=== PATIENT | female | born 1960 | race Caucasian/White ===

== ENCOUNTER 2018-07-12 16:01 | Emergency (ER) | payer MEDICARE, MEDICAID, SELFPAY ==
[2018-07-12 16:08] VITALS: BP 188/110; PULSE 126; RESP 20; TEMP 37; O2SAT 96
--- NOTE | 2018-07-12 16:25 | W.ED.GENAD ---
Discharge Plan Disposition Patient Disposition: HOME Condition: Good Discharge Details Chief Complaint: EarProblem Clinical Impression: Muscle strain Primary Care Provider: Alyssa Pearson ED Provider: Jason Steinberg Home Meds and New Rx's Prescriptions: New acetaminophen [Mapap Extra Strength] 500 MG tablet 1,000 mg PO Q6H 5 Days Qty: 20 RF: 0 ibuprofen [Motrin IB] 200 MG tablet 600 mg PO Q6H 5 Days Qty: 30 RF: 0 No Action Metoprolol Succinate 25 MG TAB.ER.24H 25 mg PO DAILY Qty: 90 RF: 3 levothyroxine 150 MCG tablet 150 mcg PO DAILY Qty: 90 RF: 3 escitalopram oxalate [Lexapro] 10 MG tablet 10 mg PO DAILY Qty: 90 RF: 3 Discharge Instructions Instructions: Muscle Strain (ED) Additional Instructions: Please use ice/heat, Tylenol and Motrin for your pain. If you notice any hearing changes, fever, please return immediately. If you notice any worsening of your symptoms, or any new symptoms such as vomiting, diarrhea, fever, chills, shortness of breath, chest pain, numbness, weakness, or fainting , please return immediately to the emergency department for reevaluation. Please follow up with your primary care provider as soon as possible for reassessment and reevaluation. As always, it was a pleasure participating in your medical care today. Medical Decision Making MDM Narrative Medical decision making narrative: This is a 58-year-old female who presents for right-sided ear pain. She has a history of ear infections in the past. Physical exam demonstrates no signs of otitis media or otitis externa at this time. She has had no recent swimming episodes or bathing episodes in a bathtub for submersion. There is no evidence of erythema, effusion, or purulent drainage from the ear. No signs of rupture. Physical exam does demonstrate minimal tenderness by the insertion point of the sternocleidomastoid on the right. I feel that her signs and symptoms are inconsistent with infection especially with no systemic symptoms, and are more consistent with a mild musculoskeletal sprain of the proximal aspect of the SCM. She states that her chiropractic techniques have been helping, and I have encouraged her to continue these. We will recommend Tylenol, Motrin, heating and ice over the area. We discussed red flags for which to return as well as the importance of following up with the PCP closely. She is moving to [place] and will be getting a new PCP within the next week. I have extensively reviewed the treatment plan and discharge instructions with the patient. I have addressed all patient concerns at this time. The patient was made aware of what symptoms to monitor for that would warrant a return to the emergency department. Discussed the plan with the patient, they demonstrate verbal understanding and agreement with our assessment and plan at this time. HPI - General Adult General Date/Time Provider Initiated Documentation: 07/12/18 16:25. HPI Narrative: This is a pleasant 58-year-old female with a past medical history of multiple ear infections in the past, so had thyroid surgery 15 years ago, and hypertension. She presents today for right ear pain. Patient states that for the last 3-4 days she has had mild pain behind her right ear. It is worse with movement. It is been improved by some of her chiropractors techniques. She has had no hearing changes, fever, jaw pain, pain with swallowing, chills, nausea, vomiting or diarrhea. She denies any headache or vision changes. She has no significant neck pain otherwise. Patient denies any other complaints at this time. She states that this feels slightly different than her previous ear infections in the past. She does have a history of tympanostomy tubes for surgery. She denies any IV or illicit drug use. She does not smoke tobacco. She has no other complaints at this time. She denies any pertinent family history. Related Data Previous Rx's Medication Instructions Recorded acetaminophen [Mapap Extra 1,000 mg PO Q6H 5 Days #20 tab 07/12/18 Strength] ibuprofen [Motrin Ib] 600 mg PO Q6H 5 Days #30 tab 07/12/18 Allergies Allergy/AdvReac Type Severity Reaction Status Date / Time naproxen Allergy Severe Swelling/Ed Unverified 07/12/18 16:11 latoya metronidazole Allergy Intermediate Rash Unverified 07/12/18 16:11 aspirin Allergy Mild HIVES Unverified 07/12/18 16:11 Penicillins Allergy Mild HIVES Unverified 07/12/18 16:11 clindamycin AdvReac Mild Hives Unverified 07/12/18 16:13 General Stated Complaint: EarProblem TONE: 5 Review of Systems Review of Systems 10 point review of systems was performed, pertinent positives and negatives are noted in the history of present illness. [facility] Social History Smoking/Tobacco Use Status: Never Exam Narrative Exam Narrative: 1.Const: Well-nourished, Well-developed, appearing stated age 2.Eyes: PERRL, no conjunctival injection, and symmetrical lids. 3.ENT: Atraumatic external nose and ears. Moist MM. Neck: Symmetric, trachea midline, No thyromegaly. Patient's bilateral tympanic membranes demonstrate notable scarring from previous infections and surgeries. Left tympanic membrane shows no evidence of effusion, or purulence. No erythema. Normal external ear canal. Right tympanic membrane demonstrates similar findings. No effusion, no fluid. No other abnormalities. Patient demonstrates no significant tenderness on palpation of the tragus or auricle. She does demonstrate minimal tenderness behind the right ear, with minimal tenderness near the mastoid. No tenderness on tracking of the sternocleidomastoid. Normal movement of the neck. No neck stiffness. No signs of meningitis, or nuchal rigidity. No midline C-spine tenderness. No significant sinus congestion 4.CVS: +S1/S2, No murmurs or gallops. Peripheral pulses 2+ and equal in all extremities. Brisk capillary refill in all extremities. 5.RESP: Unlabored respiratory effort. Clear to auscultation bilaterally. No wheezes rales or rhonchi 6.GI: Soft, Nontender/Nondistended, No hepatosplenomegaly. No guarding or rebound. 7.MSK: Normocephalic/Atraumatic, Extremities w/o deformity or ttp No cyanosis or clubbing, Normal movement of all extremities 8.Skin: Warm, Dry. No rashes or lesions. 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 Sensation grossly intact, no focal neurologic deficits. 10.Psych: (AAO) x3. Appropriate mood and affect Course Vital Signs Temperature 37.0 C 07/12/18 16:08 Pulse 126 H 07/12/18 16:08 Respiratory Rate 20 07/12/18 16:08 Blood Pressure 188/110 H 07/12/18 16:08 Pulse Oximetry 96 07/12/18 16:08 Temperature 37.0 C 07/12/18 16:08 Pulse 126 H 07/12/18 16:08 Respiratory Rate 20 07/12/18 16:08 Blood Pressure 188/110 H 07/12/18 16:08 Pulse Oximetry 96 07/12/18 16:08
--- NOTE | 2018-07-12 16:30 | ED.GENADUL_ITS ---
Discharge Plan Disposition Patient Disposition: HOME Condition: Good Discharge Details Chief Complaint: EarProblem Clinical Impression: Muscle strain Primary Care Provider: Alyssa Pearson ED Provider: Jason Steinberg Home Meds and New Rx's Prescriptions: New acetaminophen [Mapap Extra Strength] 500 MG tablet 1,000 mg PO Q6H 5 Days Qty: 20 RF: 0 ibuprofen [Motrin IB] 200 MG tablet 600 mg PO Q6H 5 Days Qty: 30 RF: 0 No Action Metoprolol Succinate 25 MG TAB.ER.24H 25 mg PO DAILY Qty: 90 RF: 3 levothyroxine 150 MCG tablet 150 mcg PO DAILY Qty: 90 RF: 3 escitalopram oxalate [Lexapro] 10 MG tablet 10 mg PO DAILY Qty: 90 RF: 3 Discharge Instructions Instructions: Muscle Strain (ED) Additional Instructions: Please use ice/heat, Tylenol and Motrin for your pain. If you notice any hearing changes, fever, please return immediately. If you notice any worsening of your symptoms, or any new symptoms such as vomiting, diarrhea, fever, chills , shortness of breath, chest pain, numbness, weakness, or fainting , please return immediately to the emergency department for reevaluation. Please follow up with your primary care provider as soon as possible for reassessment and reevaluation. As always, it was a pleasure participating in your medical care today. Medical Decision Making MDM Narrative Medical decision making narrative: This is a 58-year-old female who presents for right-sided ear pain. She has a history of ear infections in the past. Physical exam demonstrates no signs of otitis media or otitis externa at this time. She has had no recent swimming episodes or bathing episodes in a bathtub for submersion. There is no evidence of erythema, effusion, or purulent drainage from the ear. No signs of rupture. Physical exam does demonstrate minimal tenderness by the insertion point of the sternocleidomastoid on the right. I feel that her signs and symptoms are inconsistent with infection especially with no systemic symptoms, and are more consistent with a mild musculoskeletal sprain of the proximal aspect of the SCM. She states that her chiropractic techniques have been helping, and I have encouraged her to continue these. We will recommend Tylenol, Motrin, heating and ice over the area. We discussed red flags for which to return as well as the importance of following up with the PCP closely. She is moving to [place] and will be getting a new PCP within the next week. I have extensively reviewed the treatment plan and discharge instructions with the patient. I have addressed all patient concerns at this time. The patient was made aware of what symptoms to monitor for that would warrant a return to the emergency department. Discussed the plan with the patient, they demonstrate verbal understanding and agreement with our assessment and plan at this time. HPI - General Adult General Date/Time Provider Initiated Documentation: 07/12/18 16:25 . HPI Narrative: This is a pleasant 58-year-old female with a past medical history of multiple ear infections in the past, so had thyroid surgery 15 years ago, and hypertension. She presents today for right ear pain. Patient states that for the last 3-4 days she has had mild pain behind her right ear. It is worse with movement. It is been improved by some of her chiropractors techniques. She has had no hearing changes, fever, jaw pain, pain with swallowing, chills, nausea, vomiting or diarrhea. She denies any headache or vision changes. She has no significant neck pain otherwise. Patient denies any other complaints at this time. She states that this feels slightly different than her previous ear infections in the past. She does have a history of tympanostomy tubes for surgery. She denies any IV or illicit drug use. She does not smoke tobacco. She has no other complaints at this time. She denies any pertinent family history. Related Data Previous Rx's Medication Instructions Recorded acetaminophen [Mapap Extra 1,000 mg PO Q6H 5 Days #20 tab 07/12/18 Strength] ibuprofen [Motrin Ib] 600 mg PO Q6H 5 Days #30 tab 07/12/18 Allergies Allergy/AdvReac Type Severity Reaction Status Date / Time naproxen Allergy Severe Swelling/Ed Unverified 07/12/18 16:11 latoya metronidazole Allergy Intermediate Rash Unverified 07/12/18 16:11 aspirin Allergy Mild HIVES Unverified 07/12/18 16:11 Penicillins Allergy Mild HIVES Unverified 07/12/18 16:11 clindamycin AdvReac Mild Hives Unverified 07/12/18 16:13 General Stated Complaint: EarProblem TONE: 5 Review of Systems Review of Systems 10 point review of systems was performed, pertinent positives and negatives are noted in the history of present illness. [facility] Social History Smoking/Tobacco Use Status: Never Exam Narrative Exam Narrative: 1.Const: Well-nourished, Well-developed, appearing stated age 2.Eyes: PERRL, no conjunctival injection, and symmetrical lids. 3.ENT: Atraumatic external nose and ears. Moist MM. Neck: Symmetric, trachea midline, No thyromegaly. Patient's bilateral tympanic membranes demonstrate notable scarring from previous infections and surgeries. Left tympanic membrane shows no evidence of effusion, or purulence. No erythema. Normal external ear canal. Right tympanic membrane demonstrates similar findings. No effusion, no fluid. No other abnormalities. Patient demonstrates no significant tenderness on palpation of the tragus or auricle. She does demonstrate minimal tenderness behind the right ear, with minimal tenderness near the mastoid. No tenderness on tracking of the sternocleidomastoid. Normal movement of the neck. No neck stiffness. No signs of meningitis, or nuchal rigidity. No midline C-spine tenderness. No significant sinus congestion 4.CVS: +S1/S2, No murmurs or gallops. Peripheral pulses 2+ and equal in all extremities. Brisk capillary refill in all extremities. 5.RESP: Unlabored respiratory effort. Clear to auscultation bilaterally. No wheezes rales or rhonchi 6.GI: Soft, Nontender/Nondistended, No hepatosplenomegaly. No guarding or rebound. 7.MSK: Normocephalic/Atraumatic, Extremities w/o deformity or ttp No cyanosis or clubbing, Normal movement of all extremities 8.Skin: Warm, Dry. No rashes or lesions. 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 Sensation grossly intact, no focal neurologic deficits. 10.Psych: (AAO) x3. Appropriate mood and affect Course Vital Signs Temperature 37.0 C 07/12/18 16:08 Pulse 126 H 07/12/18 16:08 Respiratory Rate 20 07/12/18 16:08 Blood Pressure 188/110 H 07/12/18 16:08 Pulse Oximetry 96 07/12/18 16:08 Temperature 37.0 C 07/12/18 16:08 Pulse 126 H 07/12/18 16:08 Respiratory Rate 20 07/12/18 16:08 Blood Pressure 188/110 H 07/12/18 16:08 Pulse Oximetry 96 07/12/18 16:08
[2018-07-12 16:35] VITALS: PULSE 96; RESP 20; TEMP 37; O2SAT 96
== END 2018-07-12 16:35 | disposition home or self-care (01) ==
LOC: ER 16:42
PROVIDERS: Emergency Provider Student in an Organized Health Care Education/Training Program; PCP Nurse Practitioner Gerontology
DX: S16.1XXA Strain of muscle, fascia and tendon at neck level, initial encounter (principal); X58.XXXA Exposure to other specified factors, initial encounter; I10 Essential (primary) hypertension
CPT/HCPCS: 99282; 99283

== ENCOUNTER 2021-11-25 03:39 | Outpatient (CLI) | payer OTHER, MEDICAID, SELFPAY ==
[2021-11-25 13:21] LABS: Hemoglobin A1C 5.8 % (<5.7)
[2021-11-25 14:00] LABS: ALT 25 U/L (14-59); AST 18 U/L (15-37); Albumin 3.7 g/dL (3.4-5.0); Alkaline Phosphatase 133 U/L (46-116); Anion Gap 7.7 mmol/L (3-11); BUN 12 mg/dL (7-18); Bilirubin, Total 0.3 mg/dL (0.2-1.0); CO2 30.3 mmol/L (21.0-32.0); Calcium 9.1 mg/dL (8.5-10.1); Calculated LDL 182 mg/dL (<100); Chloride 100 mmol/L (98-107); Cholesterol 262 mg/dL (<200); Estimated GFR 56.56 (mL/min/1.73m2); Glucose 104 mg/dL (74-106); HDL Cholesterol 52 mg/dL (40-60); Potassium 4.5 mmol/L (3.5-5.1); Sodium 138 mmol/L (136-145); Total Protein 7.9 g/dL (6.4-8.2); Triglyceride 143 mg/dL (<150)
[2021-11-26 09:57] LABS: Hepatitis C Ab w Rflx HCV PCR Negative (Negative)
== END 2021-11-25 03:40 | disposition home or self-care (01) ==
LOC: LBO 03:40
PROVIDERS: Visit Provider Family Medicine
DX: E03.9 Hypothyroidism, unspecified (principal); Z00.00 Encounter for general adult medical examination without abnormal findings; Z11.59 Encounter for screening for other viral diseases
CPT/HCPCS: 36415; 80053; 80061; 86803; 83036; 84443